=== PATIENT | female | born 1990 | race Caucasian/White ===

== ENCOUNTER 2019-08-24 08:45 | Inpatient (IN) | payer OTHER ==
[2019-08-24] MEDS ORDERED: Lidocaine 1% 50 ML MDV INJECT PRN (10:16)
[2019-08-24] MEDS ORDERED: Carboprost Tromethamine 250 MCG/1 ML Amp IM PRN (10:16)
[2019-08-24] MEDS ORDERED: Methylergonovine 0.2 MG/1 ML Amp IM PRN (10:16)
[2019-08-24] MEDS ORDERED: Sodium Chloride 0.9% 2.5 ML Syringe FLUSH PRN (10:16)
[2019-08-24] MEDS ORDERED: Water For Irrigation,Sterile 1,000 ML Container IRR PRN (10:16)
[2019-08-24] MEDS ORDERED: Butorphanol 1 MG/ML SDV IVPUSH PRN (10:16)
[2019-08-24] MEDS ORDERED: Tranexamic Acid 1,000 MG in Sodium Chloride 0.9% 100 ML IV PRN (10:16)
[2019-08-24] MEDS ORDERED: Sodium Chloride 0.9% 10 ML SDV IV PRN (10:16)
[2019-08-24] MEDS ORDERED: Nalbuphine 10 MG/1 ML Vial IVPUSH PRN (10:16)
[2019-08-24] MEDS ORDERED: Terbutaline 1 MG/ML SDV SUBCUT PRN (10:16)
[2019-08-24] MEDS ORDERED: Sodium Chloride 0.9% 10 ML Syringe FLUSH PRN (10:16)
[2019-08-24] MEDS ORDERED: Misoprostol 200 MCG Tab PO PRN (10:16)
[2019-08-24] MEDS ORDERED: Oxytocin/0.9 % Sodium Chloride 30 UNIT/500 ML BAG IV SCH ×2 (10:30)
[2019-08-24] MEDS ORDERED: Ampicillin 2 GM in Sodium Chloride 0.9% 100 ML IV ONE (11:00)
[2019-08-24] MEDS: Lactated Ringers 1,000 ML IV SCH ×2 (12:19→17:28)
[2019-08-24] MEDS: Ampicillin 1 GM in Sodium Chloride 0.9% 50 ML IV SCH ×2 (16:17→20:15)
[2019-08-24] MEDS ORDERED: Ropivacaine HCl/PF 100 ML ONE (17:27)
[2019-08-24] MEDS ORDERED: fentaNYL 100 MCG/2 ML SDV ONE (17:27)
--- NOTE | 2019-08-24 17:47 | PCM.PREANE ---
Preanesthetic Assessment - Anesthesia/Transfusion/Family Hx Anesthesia History: Prior Anesthesia Without Reaction Family History of Anesthesia Reaction: No - Physical Assessment NPO Status Date: 08/24/19 NPO Status Time: 10:00 Height: 1.65 m Weight: 105.687 kg ASA Class: 1 - Lab Values: Laboratory Last Values WBC 12.74 K/uL (4.0-11.0) H 08/24/19 10:48 RBC 4.49 M/uL (4.30-5.90) 08/24/19 10:48 Hgb 13.1 g/dL (12.0-16.0) 08/24/19 10:48 Hct 40.4 % (36.0-46.0) 08/24/19 10:48 MCV 90.0 fL (80.0-98.0) 08/24/19 10:48 MCH 29.2 pg (27.0-32.0) 08/24/19 10:48 MCHC 32.4 g/dL (31.0-37.0) 08/24/19 10:48 RDW Std Deviation 44.8 fl (28.0-62.0) 08/24/19 10:48 RDW Coeff of Daniel 14 % (11.0-15.0) 08/24/19 10:48 Plt Count 288 K/uL (150-400) 08/24/19 10:48 MPV 9.90 fL (7.40-12.00) 08/24/19 10:48 Nucleated RBC % 0.0 /100WBC 08/24/19 10:48 Nucleated RBCs # 0 K/uL 08/24/19 10:48 Blood Type O POSITIVE 08/24/19 10:48 Antibody Screen NEGATIVE 08/24/19 10:48 - Allergies Allergies/Adverse Reactions: Allergies Allergy/AdvReac Type Severity Reaction Status Date / Time No Known Allergies Allergy Verified 08/24/19 16:09 - Acknowledgements Anesthesia Type Planned: Epidural Pt an Appropriate Candidate for the Planned Anesthesia: Yes Alternatives and Risks of Anesthesia Discussed w Pt/Guardian: Yes Pt/Guardian Understands and Agrees with Anesthesia Plan: Yes PreAnesthesia Questionnaire Other Gastrointestinal History: 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: Psychiatric History: Reports: Anxiety, Depression - Past Surgical History Other HEENT Surgeries/Procedures: [place] Teeth Removal - SUBSTANCE USE Smoking Status *Q: Current Every Day Smoker Tobacco Use Within Last Twelve Months: Cigarettes Recreational Drug Use History: No - HOME MEDS Home Medications: Home Meds 95/Iron Fum/Folic/Dha [ + Dha Combo Pack] 1 each PO DAILY 04/26 [History] - CURRENT (IN HOUSE) MEDS Current Meds: Current Medications Butorphanol Tartrate (Stadol) 1 mg IVPUSH Q1H PRN PRN Reason: Pain Carboprost Tromethamine (Hemabate Ds) 250 mcg IM ASDIRECTED PRN PRN Reason: Post Hemorrhage Ampicillin Sodium 1 gm/ Sodium (Chloride) 50 mls @ 100 mls/hr IV Q4H VICKIE Last Admin: 08/24/19 16:17 Dose: 100 mls/hr Lactated Ringer's (Ringers, Lactated) 1,000 mls @ 150 mls/hr IV ASDIRECTED VICKIE Last Admin: 08/24/19 17:28 Dose: 999 mls/hr Oxytocin/Sodium Chloride (Oxytocin 30 Unit/500 Ml-Ns) 30 unit in 500 mls @ 2 mls/hr IV TITRATE IVCKIE; Protocol Last Titration: 08/24/19 17:20 Dose: 16 munits/min, 16 mls/hr Oxytocin/Sodium Chloride (Oxytocin 30 Unit/500 Ml-Ns) 30 unit in 500 mls @ 500 mls/hr IV TITRATE VICKIE Tranexamic Acid 1,000 mg/ (Sodium Chloride) 110 mls @ 660 mls/hr IV ONETIME PRN PRN Reason: Bleeding Lidocaine HCl (Xylocaine 1%) 50 ml INJECT ONETIME PRN PRN Reason: Laceration repair Methylergonovine Maleate (Methergine) 0.2 mg IM ASDIRECTED PRN PRN Reason: Post Hemorrhage Misoprostol (Cytotec) 200 mcg PO ONETIME PRN PRN Reason: Post Hemorrhage Nalbuphine HCl (Nubain) 10 mg IVPUSH Q1H PRN PRN Reason: Pain (severe 7-10) Sodium Chloride (Saline Flush) 10 ml FLUSH ASDIRECTED PRN PRN Reason: Keep Vein Open Sodium Chloride (Saline Flush) 2.5 ml FLUSH ASDIRECTED PRN PRN Reason: Keep Vein Open Sodium Chloride (Normal Saline) 10 ml IV ASDIRECTED PRN PRN Reason: IV Use Sterile Water (Sterile Water For Irrigation) 1,000 ml IRR ASDIRECTED PRN PRN Reason: delivery Terbutaline Sulfate (Brethine) 0.25 mg SUBCUT ASDIRECTED PRN PRN Reason: Tacysystole Discontinued Medications Fentanyl (Sublimaze) Confirm Administered Dose 100 mcg .ROUTE .STK-MED ONE Stop: 08/24/19 17:28 Ampicillin Sodium 2 gm/ Sodium (Chloride) 100 mls @ 200 mls/hr IV ONETIME ONE Stop: 08/24/19 11:29 Last Admin: 08/24/19 12:19 Dose: 200 mls/hr Ropivacaine (Naropin 0.2%) Confirm Administered Dose 100 mls @ as directed .ROUTE .STK-MED ONE Stop: 08/24/19 17:28
--- NOTE | 2019-08-24 17:51 | PCM.PRNOTE ---
- Free Text/Narrative Note: Anes Note Patient requests epidural for L&D> Sitting position, sterile technique. Level L3 -L4 midline approach. Chloraprep scrub to lumbar area. Sterile fenestrated drape applied. Epidural space easily achieved single attempt with ease using AMELIA technique. AMELIA at 4 cm. Cath threaded 5 cm with ease. Cath secured at skin at 11 cm at skin using sterile clear adhesive dressing. test 1735 3 cc 1.5% lido with epi negative 1540 Load 10 cc 0.2% ropivicaine with 1 mcg cc fentanyl in slow divided doses. 1744 Pump started with 90 cc same solution. Rate is 8 cc hr with 6 cc q 20 min prn bolus. Ojse Luis well. Time with patient [id number] Dominic Engel CRNA
[2019-08-24] MEDS ORDERED: Bisacodyl 10 MG Supp RECTAL PRN (21:29)
[2019-08-24] MEDS ORDERED: Witch Hazel Medicated Pads 40/Jar TOP PRN (21:29)
[2019-08-24] MEDS ORDERED: Acetaminophen 500 MG Tab PO PRN (21:29)
[2019-08-24] MEDS ORDERED: Benzocaine/Menthol 20%-0.5% Spray 78 GM Cannister TOP PRN (21:29)
[2019-08-24] MEDS ORDERED: Lanolin 100% Cream 7 GM Tube TOP PRN (21:29)
[2019-08-24] MEDS ORDERED: Ibuprofen 400 MG Tab PO PRN (21:29)
--- NOTE | 2019-08-24 22:44 | OR ---
SURGEON: Rajan Godoy MD DATE OF PROCEDURE: 08/24/2019 INDICATION FOR PROCEDURE: A 29-year-old G3, P2-0-0-2 at 39 weeks and 1 day, presenting for scheduled elective induction of labor. The patient is GBS positive and received ampicillin for GBS prophylaxis. She was given Pitocin for induction of labor and had AROM with clear fluid. Baby had category 1 tracing throughout induction. She progressed to fully dilated and +2 station with urge to push. PREOPERATIVE DIAGNOSIS: 1. Sam intrauterine at 39 weeks and 1 day. POSTOPERATIVE DIAGNOSES: 1. Sam intrauterine at 39 weeks and 1 day. PROCEDURE: Normal spontaneous vaginal delivery, repair of first-degree perineal laceration. ANESTHESIA: Epidural. ANESTHESIOLOGIST: Dr. Siva Manning. EBL: 400cc FINDINGS: Viable female infant, scores of 9 and 9, weight of 6 pounds 14 ounces. DESCRIPTION OF THE PROCEDURE: The patient pushed with contractions for approximately 15 minutes. Early decels were noted during contractions. The baby delivered in occiput anterior position over intact perineum, restituted LOT. Tight nuchal cord x1 was noted. The anterior shoulder delivered easily followed by posterior shoulder and remaining body. Nuchal cord was reduced after delivery. The baby was placed on maternal chest and evaluated by awaiting nursery staff. The baby was pink, crying, and moving all extremities after delivery. The cord was clamped and cut after 60 seconds and no longer pulsating. The cord gases were obtained. The placenta was removed with gentle traction on the umbilical cord after approximately 15 minutes. The uterus was firm after fundal massage. The bleeding was moderate. Perineum was examined and first-degree perineal laceration was repaired with 3-0 Vicryl in usual fashion. The patient tolerated the procedure well, was given care instructions. ABEBE / MAE /[id number] GERMAN
[2019-08-25] MEDS: Acetaminophen 500 MG Tab PO PRN ×4 (00:13→15:54)
[2019-08-25] MEDS: Docusate Sodium 100 MG Cap PO PRN ×2 (00:13→15:51)
[2019-08-25] MEDS: Ampicillin 1 GM in Sodium Chloride 0.9% 50 ML IV SCH (00:14)
[2019-08-25] MEDS: Ibuprofen 800 MG Tab PO PRN ×3 (03:07→19:46)
--- NOTE | 2019-08-25 07:59 | PCM48HPAN ---
Post Anesthesia Note - EVALUATION WITHIN 48HRS OF ANESTHETIC Vital Signs in Normal Range: Yes Patient Participated in Evaluation: Yes Respiratory Function Stable: Yes Airway Patent: Yes Cardiovascular Function Stable: Yes Hydration Status Stable: Yes Pain Control Satisfactory: Yes Nausea and Vomiting Control Satisfactory: Yes Mental Status Recovered: Yes Vital Signs: Last Vital Signs Temp 36.9 C 08/25/19 03:15 Pulse 79 08/25/19 03:15 Resp 17 08/25/19 03:15 BP 115/59 L 08/25/19 03:15 Pulse Ox 96 08/25/19 03:15
--- NOTE | 2019-08-25 08:35 | PCM.PNPP ---
- General Info Date of Service: 08/25/19 Functional Status: Reports: Pain Controlled, Tolerating Diet, Ambulating, Urinating - Review of Systems General: Reports: No Symptoms HEENT: Reports: No Symptoms Pulmonary: Reports: No Symptoms Cardiovascular: Reports: No Symptoms Gastrointestinal: Reports: No Symptoms Genitourinary: Reports: No Symptoms Musculoskeletal: Reports: No Symptoms Skin: Reports: No Symptoms Neurological: Reports: No Symptoms Psychiatric: Reports: No Symptoms - Patient Data Vital Signs - Most Recent: Last Vital Signs Temp 36.7 C 08/25/19 08:00 Pulse 79 08/25/19 08:00 Resp 16 08/25/19 08:00 BP 127/65 08/25/19 08:00 Pulse Ox 96 08/25/19 08:00 Weight - Most Recent: 105.687 kg Lab Results - Last 24 Hours: Laboratory Results - last 24 hr 08/24/19 08/24/19 08/25/19 Range/Units 10:48 10:48 05:43 WBC 12.74 H (4.0-11.0) K/uL RBC 4.49 (4.30-5.90) M/uL Hgb 13.1 10.2 L (12.0-16.0) g/dL Hct 40.4 31.1 L (36.0-46.0) % MCV 90.0 (80.0-98.0) fL MCH 29.2 (27.0-32.0) pg MCHC 32.4 (31.0-37.0) g/dL RDW Std Deviation 44.8 (28.0-62.0) fl RDW Coeff of Daniel 14 (11.0-15.0) % Plt Count 288 (150-400) K/uL MPV 9.90 (7.40-12.00) fL Nucleated RBC % 0.0 /100WBC Nucleated RBCs # 0 K/uL Blood Type O POSITIVE Antibody Screen NEGATIVE Med Orders - Current: Current Medications Acetaminophen (Tylenol Extra Strength) 500 mg PO Q4H PRN PRN Reason: Pain Acetaminophen (Tylenol Extra Strength) 1,000 mg PO Q4H PRN PRN Reason: Pain Last Admin: 08/25/19 06:07 Dose: 1,000 mg Benzocaine/Menthol (Dermoplast Pain Relief 20%-0.5% [place]) 0 gm TOP ASDIRECTED PRN PRN Reason: Perineal Comfort Measure Last Admin: 08/24/19 23:54 Dose: 1 canister Bisacodyl (Dulcolax) 10 mg RECTAL ONETIME PRN PRN Reason: Constipation Butorphanol Tartrate (Stadol) 1 mg IVPUSH Q1H PRN PRN Reason: Pain Carboprost Tromethamine (Hemabate Ds) 250 mcg IM ASDIRECTED PRN PRN Reason: Post Hemorrhage Docusate Sodium (Colace) 100 mg PO BID PRN PRN Reason: Constipation Last Admin: 08/25/19 00:13 Dose: 100 mg Emollient Ointment (Lansinoh Hpa) 0 gm TOP ASDIRECTED PRN PRN Reason: Sore Nipples Lactated Ringer's (Ringers, Lactated) 1,000 mls @ 150 mls/hr IV ASDIRECTED VICKIE Last Infusion: 08/24/19 18:00 Dose: 150 mls/hr Oxytocin/Sodium Chloride (Oxytocin 30 Unit/500 Ml-Ns) 30 unit in 500 mls @ 2 mls/hr IV TITRATE VICKIE; Protocol Last Titration: 08/24/19 20:58 Dose: 999 munits/min, 999 mls/hr Oxytocin/Sodium Chloride (Oxytocin 30 Unit/500 Ml-Ns) 30 unit in 500 mls @ 500 mls/hr IV TITRATE VICKIE Tranexamic Acid 1,000 mg/ (Sodium Chloride) 110 mls @ 660 mls/hr IV ONETIME PRN PRN Reason: Bleeding Last Admin: 08/24/19 22:24 Dose: 660 mls/hr Ibuprofen (Motrin) 400 mg PO Q4H PRN PRN Reason: Pain Ibuprofen (Motrin) 800 mg PO Q6H PRN PRN Reason: Pain Last Admin: 08/25/19 03:07 Dose: 800 mg Lidocaine HCl (Xylocaine 1%) 50 ml INJECT ONETIME PRN PRN Reason: Laceration repair Methylergonovine Maleate (Methergine) 0.2 mg IM ASDIRECTED PRN PRN Reason: Post Hemorrhage Last Admin: 08/24/19 22:20 Dose: 0.2 mg Misoprostol (Cytotec) 200 mcg PO ONETIME PRN PRN Reason: Post Hemorrhage Nalbuphine HCl (Nubain) 10 mg IVPUSH Q1H PRN PRN Reason: Pain (severe 7-10) Sodium Chloride (Saline Flush) 10 ml FLUSH ASDIRECTED PRN PRN Reason: Keep Vein Open Sodium Chloride (Saline Flush) 2.5 ml FLUSH ASDIRECTED PRN PRN Reason: Keep Vein Open Sodium Chloride (Normal Saline) 10 ml IV ASDIRECTED PRN PRN Reason: IV Use Sterile Water (Sterile Water For Irrigation) 1,000 ml IRR ASDIRECTED PRN PRN Reason: delivery Last Admin: 08/24/19 21:06 Dose: 1,000 ml Terbutaline Sulfate (Brethine) 0.25 mg SUBCUT ASDIRECTED PRN PRN Reason: Tacysystole Witch Lora (Tucks) 1 pad TOP ASDIRECTED PRN PRN Reason: comfort care Last Admin: 08/24/19 23:54 Dose: 1 container Discontinued Medications Fentanyl (Sublimaze) Confirm Administered Dose 100 mcg .ROUTE .STK-MED ONE Stop: 08/24/19 17:28 Last Admin: 08/25/19 00:32 Dose: Not Given Ampicillin Sodium 2 gm/ Sodium (Chloride) 100 mls @ 200 mls/hr IV ONETIME ONE Stop: 08/24/19 11:29 Last Admin: 08/24/19 12:19 Dose: 200 mls/hr Ampicillin Sodium 1 gm/ Sodium (Chloride) 50 mls @ 100 mls/hr IV Q4H VICKIE Stop: 08/25/19 00:33 Last Admin: 08/25/19 00:14 Dose: Not Given Ropivacaine (Naropin 0.2%) Confirm Administered Dose 100 mls @ as directed .ROUTE .STK-MED ONE Stop: 08/24/19 17:28 Last Admin: 08/25/19 00:32 Dose: Not Given - Infant Interaction Infant Disposition, : [place] in Room with Family Infant Interaction: Holding Feeding: Breastfed Infant; Nursed Well Support Person: Mother, Significant Other - Recovery Exam Fundal Tone: Firm Fundal Level: 1 Fingerbreadths Below Umbilicus Fundal Placement: Midline Lochia Amount: Small Lochia Color: Rubra/Red Perineum Description: Other (see below) Other Perinuem Description: 1st degree laceration with repair Episiotomy/Laceration: Approximated Bladder Status: Voiding Urinary Elimination: Voided - Exam General: Alert, Oriented HEENT: Pupils Equal Neck: Supple Lungs: Clear to Auscultation, Normal Respiratory Effort Cardiovascular: Regular Rate, Regular Rhythm GI/Abdominal Exam: Normal Bowel Sounds, Soft, Non-Tender, No Distention Extremities: Normal Inspection, Normal Range of Motion, Non-Tender, No Pedal Edema Skin: Warm, Dry, Intact Psy/Mental Status: Alert, Normal Affect, Normal Mood - Problem List Review Problem List Initiated/Reviewed/Updated: Yes - My Orders Last 24 Hours: My Active Orders 08/24/19 10:16 VTE/DVT Education [RC] PER UNIT ROUTINE Butorphanol [Stadol] 1 mg IVPUSH Q1H PRN Carboprost Tromethamine [Hemabate DS] 250 mcg IM ASDIRECTED PRN Lidocaine 1% [Xylocaine 1%] 50 ml INJECT ONETIME PRN Methylergonovine [Methergine] 0.2 mg IM ASDIRECTED PRN Nalbuphine [Nubain] 10 mg IVPUSH Q1H PRN Sodium Chloride 0.9% [Normal Saline] 10 ml IV ASDIRECTED PRN Sodium Chloride 0.9% [Saline Flush] 10 ml FLUSH ASDIRECTED PRN Sodium Chloride 0.9% [Saline Flush] 2.5 ml FLUSH ASDIRECTED PRN Terbutaline [Brethine] 0.25 mg SUBCUT ASDIRECTED PRN Tranexamic Acid [Cyklokapron] 1,000 mg Sodium Chloride 0.9% [Normal Saline] 100 ml IV ONETIME Water For Irrigation,Sterile [Sterile Water for Irrigation] 1,000 ml IRR ASDIRECTED PRN miSOPROStoL [Cytotec] 200 mcg PO ONETIME PRN Resuscitation Status Routine 08/24/19 10:17 Heart Tones [RC] CONTINUOUS May Shower [RC] ASDIRECTED Oxygen Therapy [RC] ASDIRECTED Up ad Shannon [RC] ASDIRECTED Vital Signs [RC] PER UNIT ROUTINE Scalp Electrode [WOMSER] Per Unit Routine Peripheral IV Insertion Adult [OM.PC] Routine 08/24/19 10:30 Lactated Ringers [Ringers, Lactated] 1,000 ml IV ASDIRECTED Oxytocin/0.9 % Sodium Chloride [Oxytocin 30 Unit/500 ML-NS] 30 unit in 500 ml IV TITRATE Oxytocin/0.9 % Sodium Chloride [Oxytocin 30 Unit/500 ML-NS] 30 unit in 500 ml IV TITRATE Medication Administration Instruction [OM.PC] Q3H 08/24/19 10:48 RPR (SYPHILIS SERO) W/ RFLX [REF] Routine - Assessment Assessment:: PPD#1 after , stable, minimal lochia, would like to go home at 24 hours - Plan Plan:: discharge instructions reviewed, dismiss this evening if peds is in agreement
[2019-08-26] MEDS: Acetaminophen 500 MG Tab PO PRN (01:39)
[2019-08-26] MEDS: Ibuprofen 800 MG Tab PO PRN (08:16)
--- NOTE | 2019-08-26 12:13 | PCM.PNPP ---
- General Info Date of Service: 08/26/19 Functional Status: Reports: Pain Controlled, Tolerating Diet, Ambulating, Urinating - Review of Systems General: Reports: No Symptoms HEENT: Reports: No Symptoms Pulmonary: Reports: No Symptoms Cardiovascular: Reports: No Symptoms Gastrointestinal: Reports: No Symptoms Genitourinary: Reports: No Symptoms Musculoskeletal: Reports: No Symptoms Skin: Reports: No Symptoms Neurological: Reports: No Symptoms Psychiatric: Reports: No Symptoms - General Info Date of Service: 08/26/19 - Patient Data Vital Signs - Most Recent: Last Vital Signs Temp 36.6 C 08/26/19 04:44 Pulse 76 08/26/19 04:44 Resp 16 08/26/19 04:44 BP 97/52 L 08/26/19 04:44 Pulse Ox 95 08/26/19 04:44 Weight - Most Recent: 105.687 kg Lab Results - Last 24 Hours: Laboratory Results - last 24 hr 08/24/19 Range/Units 10:48 RPR Non-Reac (Non-Reac) Med Orders - Current: Current Medications Acetaminophen (Tylenol Extra Strength) 500 mg PO Q4H PRN PRN Reason: Pain Acetaminophen (Tylenol Extra Strength) 1,000 mg PO Q4H PRN PRN Reason: Pain Last Admin: 08/26/19 01:39 Dose: 1,000 mg Benzocaine/Menthol (Dermoplast Pain Relief 20%-0.5% [place]) 0 gm TOP ASDIRECTED PRN PRN Reason: Perineal Comfort Measure Last Admin: 08/24/19 23:54 Dose: 1 canister Bisacodyl (Dulcolax) 10 mg RECTAL ONETIME PRN PRN Reason: Constipation Butorphanol Tartrate (Stadol) 1 mg IVPUSH Q1H PRN PRN Reason: Pain Carboprost Tromethamine (Hemabate Ds) 250 mcg IM ASDIRECTED PRN PRN Reason: Post Hemorrhage Docusate Sodium (Colace) 100 mg PO BID PRN PRN Reason: Constipation Last Admin: 08/25/19 15:51 Dose: 100 mg Emollient Ointment (Lansinoh Hpa) 0 gm TOP ASDIRECTED PRN PRN Reason: Sore Nipples Lactated Ringer's (Ringers, Lactated) 1,000 mls @ 150 mls/hr IV ASDIRECTED VICKIE Last Infusion: 08/24/19 18:00 Dose: 150 mls/hr Oxytocin/Sodium Chloride (Oxytocin 30 Unit/500 Ml-Ns) 30 unit in 500 mls @ 2 mls/hr IV TITRATE VICKIE; Protocol Last Titration: 08/24/19 20:58 Dose: 999 munits/min, 999 mls/hr Oxytocin/Sodium Chloride (Oxytocin 30 Unit/500 Ml-Ns) 30 unit in 500 mls @ 500 mls/hr IV TITRATE VICKIE Tranexamic Acid 1,000 mg/ (Sodium Chloride) 110 mls @ 660 mls/hr IV ONETIME PRN PRN Reason: Bleeding Last Admin: 08/24/19 22:24 Dose: 660 mls/hr Ibuprofen (Motrin) 400 mg PO Q4H PRN PRN Reason: Pain Ibuprofen (Motrin) 800 mg PO Q6H PRN PRN Reason: Pain Last Admin: 08/26/19 08:16 Dose: 800 mg Lidocaine HCl (Xylocaine 1%) 50 ml INJECT ONETIME PRN PRN Reason: Laceration repair Methylergonovine Maleate (Methergine) 0.2 mg IM ASDIRECTED PRN PRN Reason: Post Hemorrhage Last Admin: 08/24/19 22:20 Dose: 0.2 mg Misoprostol (Cytotec) 200 mcg PO ONETIME PRN PRN Reason: Post Hemorrhage Nalbuphine HCl (Nubain) 10 mg IVPUSH Q1H PRN PRN Reason: Pain (severe 7-10) Sodium Chloride (Saline Flush) 10 ml FLUSH ASDIRECTED PRN PRN Reason: Keep Vein Open Sodium Chloride (Saline Flush) 2.5 ml FLUSH ASDIRECTED PRN PRN Reason: Keep Vein Open Sodium Chloride (Normal Saline) 10 ml IV ASDIRECTED PRN PRN Reason: IV Use Sterile Water (Sterile Water For Irrigation) 1,000 ml IRR ASDIRECTED PRN PRN Reason: delivery Last Admin: 08/24/19 21:06 Dose: 1,000 ml Terbutaline Sulfate (Brethine) 0.25 mg SUBCUT ASDIRECTED PRN PRN Reason: Tacysystole Witch Lora (Tucks) 1 pad TOP ASDIRECTED PRN PRN Reason: comfort care Last Admin: 08/24/19 23:54 Dose: 1 container Discontinued Medications Fentanyl (Sublimaze) Confirm Administered Dose 100 mcg .ROUTE .STK-MED ONE Stop: 08/24/19 17:28 Last Admin: 08/25/19 00:32 Dose: Not Given Ampicillin Sodium 2 gm/ Sodium (Chloride) 100 mls @ 200 mls/hr IV ONETIME ONE Stop: 08/24/19 11:29 Last Admin: 08/24/19 12:19 Dose: 200 mls/hr Ampicillin Sodium 1 gm/ Sodium (Chloride) 50 mls @ 100 mls/hr IV Q4H VICKIE Stop: 08/25/19 00:33 Last Admin: 08/25/19 00:14 Dose: Not Given Ropivacaine (Naropin 0.2%) Confirm Administered Dose 100 mls @ as directed .ROUTE .STK-MED ONE Stop: 08/24/19 17:28 Last Admin: 08/25/19 00:32 Dose: Not Given - Infant Interaction Disposition, : in Room with Family Interaction: Holding Infant Feeding: Breastfed ; Nursed Well Support Person: Mother, Significant Other - Recovery Exam Fundal Tone: Firm Fundal Level: 1 Fingerbreadths Below Umbilicus Fundal Placement: Midline Lochia Amount: Small, Moderate Lochia Color: Rubra/Red Perineum Description: Other (see below) Other Perinuem Description: 1st degree laceration with repair Episiotomy/Laceration: Approximated Bladder Status: Voiding Urinary Elimination: Voided - Exam Neck: Supple Lungs: Normal Respiratory Effort GI/Abdominal Exam: Non-Tender, No Distention Extremities: Normal Inspection, Non-Tender, No Pedal Edema Neurological: No New Focal Deficit Psy/Mental Status: Alert, Normal Affect, Normal Mood - Problem List & Annotations (1) Vaginal delivery SNOMED Code(s): 669704317 Code(s): O80 - ENCOUNTER FOR FULL-TERM UNCOMPLICATED DELIVERY Status: Acute Current Visit: Yes - Problem List Review Problem List Initiated/Reviewed/Updated: Yes - Assessment Assessment:: PPD#2 after , stable, stayed overnight due to elevated bilirubin for baby, dismiss to home today. - Plan Plan:: discharge instructions again reviewed, dismiss today
== END 2019-08-26 14:15 | disposition home or self-care (01) | DRG 807 ==
LOC: MW.OB 08:45 → OBSVTOIN 21:29 → MW.OB 08-25 00:07
PROVIDERS: ADMIT Obstetrics & Gynecology; ATTEND Obstetrics & Gynecology
PROC: 10E0XZZ Delivery of Products of Conception, External Approach (ICD-10-PCS; principal; 2019-08-24)
PROC: 0HQ9XZZ Repair Perineum Skin, External Approach (ICD-10-PCS; 2019-08-24)
PROC: 10907ZC Drainage of Amniotic Fluid, Therapeutic from Products of Conception, Via Natural or Artificial Opening (ICD-10-PCS; 2019-08-24)
PROC: 3E0R3BZ Introduction of Anesthetic Agent into Spinal Canal, Percutaneous Approach (ICD-10-PCS; 2019-08-24)
PROC: 00HU33Z Insertion of Infusion Device into Spinal Canal, Percutaneous Approach (ICD-10-PCS; 2019-08-24)
DX: O99.824 Streptococcus B carrier state complicating childbirth (principal); Z37.0 Single live birth; O76 Abnormality in fetal heart rate and rhythm complicating labor and delivery; O69.1XX0 Labor and delivery complicated by cord around neck, with compression, not applicable or unspecified; O70.0 First degree perineal laceration during delivery; Z3A.39 39 weeks gestation of pregnancy; Z79.899 Other long term (current) drug therapy
CPT/HCPCS: 01967; 36415; 51702; 59025; 59409; 85014; 85018; 85027; 86592; 86593; 86850; 86900; 86901; A9270-GY; J0290; J2210; J2590; J7050; J7120

== ENCOUNTER 2019-10-24 08:20 | Day surgery (SDC) | payer OTHER ==
[~2019-10-24 08:20] MED LIST: Lactated Ringers 1,000 ML IV SCH
--- NOTE | 2019-10-24 09:07 | PCM.PREANE ---
Preanesthetic Assessment - Anesthesia/Transfusion/Family Hx Anesthesia History: Prior Anesthesia Without Reaction Family History of Anesthesia Reaction: No Transfusion History: No Prior Transfusion(s) - Review of Systems General: No Symptoms Pulmonary: No Symptoms Cardiovascular: No Symptoms Gastrointestinal: No Symptoms Neurological: No Symptoms Other: Reports: None - Physical Assessment NPO Status Date: 10/23/19 Height: 5 ft 5 in Weight: 90.718 kg ASA Class: 2 Mental Status: Alert & Oriented x3 Airway Class: Mallampati = 2 Dentition: Reports: Normal Dentition ROM/Head Extension: Full Lungs: Clear to Auscultation, Normal Respiratory Effort Cardiovascular: Regular Rate, Regular Rhythm - Allergies Allergies/Adverse Reactions: Allergies Allergy/AdvReac Type Severity Reaction Status Date / Time No Known Allergies Allergy Verified 10/24/19 09:05 - Blood Blood Available: No - Anesthesia Plan Pre-Op Medication Ordered: None - Acknowledgements Anesthesia Type Planned: Spinal Pt an Appropriate Candidate for the Planned Anesthesia: Yes Alternatives and Risks of Anesthesia Discussed w Pt/Guardian: Yes Pt/Guardian Understands and Agrees with Anesthesia Plan: Yes PreAnesthesia Questionnaire HEENT History: Reports: Other (See Below) Other HEENT History: wears glasses Other Gastrointestinal History: Heartburn during pregnanch Genitourinary History: Reports: Renal Calculus Other Genitourinary History: currently has a kidney stone 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 [No Known Home Meds] 10/24/19 [History] - CURRENT (IN HOUSE) MEDS Current Meds: Current Medications Lactated Ringer's (Ringers, Lactated) 1,000 mls @ 125 mls/hr IV ASDIRECTED VICKIE Last Admin: 10/24/19 09:05 Dose: 125 mls/hr
[2019-10-24] MEDS ORDERED: Ondansetron 4 MG/2 ML SDV ONE (10:00)
[2019-10-24] MEDS ORDERED: Midazolam 1 MG/ML 2 ML SDV ONE (10:01)
[2019-10-24] MEDS ORDERED: Propofol 200 MG/20 ML SDV ONE (10:01)
[2019-10-24] MEDS ORDERED: fentaNYL 100 MCG/2 ML SDV ONE (10:01)
[2019-10-24] MEDS ORDERED: Methylergonovine 0.2 MG/1 ML Amp ONE (10:03)
[2019-10-24] MEDS ORDERED: Carboprost Tromethamine 250 MCG/1 ML Amp ONE (10:03)
[2019-10-24] MEDS ORDERED: ceFAZolin/Dextrose,Iso-Osmotic 2 GM/50 ML Duplex Bag IV ONE (10:19)
[2019-10-24] MEDS ORDERED: Ketorolac 30 MG/ML SDV ONE (10:35)
--- NOTE | 2019-10-24 10:47 | PCM.OPNOTE ---
- General Post-Op/Procedure Note Date of Surgery/Procedure: 10/24/19 Operative Procedure(s): suction D&C Findings: 2x3 cm placental fragment, the uterus was anteverted, sounded to 9 cm Pre Op Diagnosis: retained POC Post-Op Diagnosis: Same Anesthesia Technique: Spinal Primary Surgeon: Gaby Vargas Anesthesia Provider: Siva Manning Rewinder Operator Helper: Isabel Alan Pathology: products of conception Fluid Replacement, Intraop: 1,000 EBL in mLs: 20 Complications: None Known Condition: Good
--- NOTE | 2019-10-24 11:29 | PCM.POSTAN ---
POST ANESTHESIA ASSESSMENT - MENTAL STATUS Mental Status: Alert, Oriented - VITAL SIGNS Vital Signs: Last Vital Signs Temp 96.6 F L 10/24/19 10:39 Pulse 86 10/24/19 11:04 Resp 14 10/24/19 11:04 BP 94/48 L 10/24/19 11:04 Pulse Ox 97 10/24/19 11:04 - RESPIRATORY Respiratory Status: Respiratory Rate WNL, Airway Patent, O2 Saturation Stable - CARDIOVASCULAR CV Status: Pulse Rate WNL, Blood Pressure Stable - GASTROINTESTINAL GI Status: No Symptoms - POST OP HYDRATION Hydration Status: Adequate & Stable
--- NOTE | 2019-10-24 11:30 | PCM48HPAN ---
Post Anesthesia Note - EVALUATION WITHIN 48HRS OF ANESTHETIC Vital Signs in Normal Range: Yes Patient Participated in Evaluation: Yes Respiratory Function Stable: Yes Airway Patent: Yes Cardiovascular Function Stable: Yes Hydration Status Stable: Yes Pain Control Satisfactory: Yes Nausea and Vomiting Control Satisfactory: Yes Mental Status Recovered: Yes Vital Signs: Last Vital Signs Temp 96.6 F L 10/24/19 10:39 Pulse 86 10/24/19 11:04 Resp 14 10/24/19 11:04 BP 94/48 L 10/24/19 11:04 Pulse Ox 97 10/24/19 11:04
--- NOTE | 2019-10-24 14:33 | OR ---
SURGEON: Gaby Vargas M.D. DATE OF PROCEDURE: 10/24/2019 PREOPERATIVE DIAGNOSIS: Retained products of conception. POSTOPERATIVE DIAGNOSIS: Retained products of conception. PROCEDURE: Suction dilatation and curettage. PRIMARY SURGEON: Gaby Vargas MD ANESTHESIA: Spinal. ESTIMATED BLOOD LOSS: 20 mL. FLUIDS: 1000 mL of crystalloid. FINDINGS: Uterus anteverted, sounds to 9 cm. A 3 x 2 cm piece of retained placental fragment was removed. COMPLICATIONS: None known. DISPOSITION: Stable to Recovery. PATHOLOGY: Products of conception. BRIEF HISTORY: This is a 29-year-old female. She is 8 weeks' . She has had a normal course. Her bleeding resolved approximately 6 weeks. Five to six days later, she began to have a new onset of bleeding that has lasted almost 2 weeks. Therefore, ultrasound was performed with the finding of a 2 x 3 cm irregular area near the uterine fundus with vascular flow suggestive of retained placental fragment. She was afebrile. She had a normal white blood cell count. She had a normal hemoglobin, a negative HCG, and my recommendation was to proceed with suction D and C for retained products of conception with risks discussed including bleeding, infection, injury to the uterus or surrounding tissue, as well as the risk of Asherman syndrome. Understanding all these risks, she does desire to proceed. DESCRIPTION OF PROCEDURE: With the patient in dorsal lithotomy position, under adequate spinal analgesia, the perineum and vagina were prepped with Betadine and draped in the usual fashion for vaginal surgery. SCDs were in place. The bladder had been drained and appropriate time-out was held. Bimanual examination revealed an anteverted 8-week size uterus. The cervix was closed. Speculum was placed in the vagina. The posterior lip of the cervix was grasped and the cervix was easily dilated to a 12 mm Hegar dilator. A 12 mm suction cannula was placed to the fundus and retracted repetitively with minimal tissue obtained. Ultrasound had been called prior to the procedure, but was unavailable at this time, although was scheduled; and therefore, I did proceed with a sharp curette. The posterior right and left wall had good uterine cry. On the anterior wall fundal region, there was a firm nodule which was removed. This was 2 x 3 cm, consistent with the findings on ultrasound. Following this, a good uterine cry was felt and the suction cannula was replaced to the fundus. There was no further tissue obtained. There was no bleeding. At this point, ultrasound still was not available. Therefore, I felt comfortable due to the consistency of the tissue that was removed from prior ultrasound and findings on exam that I did not require intraoperative ultrasound. Therefore, final sponge, needle, and instrument counts were reported as correct. There were no known complications. The patient was transferred to Recovery in good condition. JAY / MAE /[id number]
== END 2019-10-24 12:34 | disposition home or self-care (01) ==
LOC: MW.SDS 08:20
PROVIDERS: ATTEND Obstetrics & Gynecology
DX: O73.1 Retained portions of placenta and membranes, without hemorrhage (principal); O99.335 Smoking (tobacco) complicating the puerperium; F17.210 Nicotine dependence, cigarettes, uncomplicated; O99.345 Other mental disorders complicating the puerperium; F53.0 Postpartum depression; O99.215 Obesity complicating the puerperium; E66.9 Obesity, unspecified
CPT/HCPCS: 36415; 59160; 86850; 86900; 86901; J0690; J1885; J2001; J2210; J2250; J2405; J2704; J3010; J7120; 01965; 88305